=== PATIENT | male | born 1965 | race Caucasian/White ===

== ENCOUNTER → 2016-11-20 | Outpatient (CLI) | payer MEDICARE ==
[~2016-11-20] MED LIST: ANAPROX DS550 MG PO; ANTIBIOTIC O500 U/GM TP; AUGMENTIN 875875 MG PO; BENADRYL ALLERG25 M5 PO; DAYPRO600 M1 PO; DEPAKOTE500 MG PO; ECPIRIN325 MG PO; FLEXERIL10 MG PO; GABAPENTIN800 MG PO; GLIMEPIRIDE2 MG PO; HYDROCODONE BIT1 T11 PO; MEDROL DOSEPAK4 MG PO; METFORMIN500 MG PO; Motrin,Rufen800 MG PO; PEN-VEE K500 MG PO; PERCOCET 325 MG1 TA7 PO; PREDNICOT20 MG PO; PREDNISONE10 MG PO; RISPERDAL4 MG PO; ROBAXIN750 MG PO; ULTRAM50 MG PO; VICODIN 500 MG-1 TAB PO; ZOCOR10 MG PO; ZOFRAN4 MG PO
[2016-11-20 10:38] LABS: ALBUMIN 3.3 gm/dl (3.1-4.5); BUN 8 mg/dl (7-24); CARBON DIOXIDE 30 mmol/L (21-32); CHLORIDE 95 mmol/L (98-107); EST GLOM FILT AFRICAN AMERICAN > 60 ml/min; GLUCOSE 363 mg/dL (65-99); POTASSIUM 3.9 mmol/L (3.5-5.1); SGOT/AST 24 IU/L (3-35); SGPT/ALT 41 U/L (12-78); SODIUM 134 mmol/L (136-145)
[2016-11-20 10:46] LABS: FOLIC ACID 11.13 ng/mL (>5.38)
[2016-11-20 10:47] LABS: ALKALINE PHOSPHATASE 89 U/L (45-117); BILIRUBIN, TOTAL 0.4 mg/dl (0.2-1.0)
== END | disposition home or self-care (01) ==
LOC: LAB 09:22
PROVIDERS: Psychiatry & Neurology Neurology
DX: R41.89 Other symptoms and signs involving cognitive functions and awareness (principal); R20.9 Unspecified disturbances of skin sensation

== ENCOUNTER 2017-02-27 17:08 | Emergency (ER) | payer MEDICARE ==
[~2017-02-27] VITALS: Ht 180.3 cm; Wt 135.6 kg
[2017-02-27] MEDS ORDERED: BISACODYL LAXATI5 MG PO (17:22)
[2017-02-27 17:55] LABS: BASO # 0.1 10*3/uL (0.0-0.1); BASO % 0.6 % (0.0-1.0); EOS # 0.3 10*3/uL (0.0-0.4); EOS % 2.6 % (1.0-4.0); HEMATOCRIT 43.3 % (42.0-52.0); HEMOGLOBIN 14.5 g/dl (14.0-18.0); LYMPH # 2.7 10*3/uL (1.3-4.4); LYMPH % 23.1 % (27.0-41.0); MEAN CELL VOLUME 83.6 fl (80.0-94.0); MEAN CORPUSCULAR HGB CONC 33.5 g/dl (33.0-37.0); MEAN PLATELET VOLUME 9.8 fl (9.6-12.3); MONO # 0.7 10*3/uL (0.1-1.0); MONO % 6.1 % (3.0-9.0); NEUT # 7.8 10*3/uL (2.3-7.9); NEUT % 67.3 % (47.0-73.0); PLATELET COUNT AUTOMATED 308 10*3/uL (130-400); RED BLOOD COUNT 5.18 10*6/uL (4.50-5.90); RED CELL DISTRI WIDTH 13.3 % (0-14.5); WHITE BLOOD COUNT 11.6 10*3/uL (4.8-10.8)
[2017-02-27 18:16] LABS: ALBUMIN 3.3 gm/dl (3.1-4.5); ALKALINE PHOSPHATASE 81 U/L (45-117); BILIRUBIN, TOTAL 0.7 mg/dl (0.2-1.0); BUN 7 mg/dl (7-24); CARBON DIOXIDE 28 mmol/L (21-32); CHLORIDE 99 mmol/L (98-107); EST GLOM FILT AFRICAN AMERICAN > 60 ml/min; GLUCOSE 162 mg/dL (65-99); POTASSIUM 3.5 mmol/L (3.5-5.1); SGOT/AST 21 IU/L (3-35); SGPT/ALT 25 U/L (12-78); SODIUM 135 mmol/L (136-145); TOTAL PROTEIN 7.9 gm/dL (6.4-8.2)
[2017-02-27] MEDS ORDERED: AMOXICILLIN875 MG PO (18:20)
[2017-02-27] MEDS ORDERED: CLARITIN10 MG PO (18:20)
[2017-02-27] MEDS ORDERED: FLONASE ALLERG9.9 ML NAS (18:20)
== END 2017-02-27 18:32 | disposition home or self-care (01) ==
LOC: ED 17:08
PROVIDERS: Physician Assistant
DX: J01.90 Acute sinusitis, unspecified (principal); G89.29 Other chronic pain; R19.7 Diarrhea, unspecified; K21.9 Gastro-esophageal reflux disease without esophagitis; Z90.49 Acquired absence of other specified parts of digestive tract; Z79.899 Other long term (current) drug therapy

== ENCOUNTER → 2017-03-26 | Outpatient (CLI) | payer OTHER ==
[~2017-03-26] MED LIST changes: +AMOXICILLIN875 MG PO; +BISACODYL LAXATI5 MG PO; +CLARITIN10 MG PO; +FLONASE ALLERG9.9 ML NAS
[2017-03-26 12:22] LABS: HEMATOCRIT 45.6 % (42.0-52.0); HEMOGLOBIN 15.2 g/dl (14.0-18.0); MEAN CELL VOLUME 83.2 fl (80.0-94.0); MEAN CORPUSCULAR HGB 27.7 pg (27.0-31.0); MEAN CORPUSCULAR HGB CONC 33.3 g/dl (33.0-37.0); MEAN PLATELET VOLUME 10.2 fl (9.6-12.3); RED BLOOD COUNT 5.48 10*6/uL (4.50-5.90); RED CELL DISTRI WIDTH 13.4 % (0-14.5); WHITE BLOOD COUNT 13.4 10*3/uL (4.8-10.8)
[2017-03-26 12:45] LABS: ALBUMIN 3.3 gm/dl (3.1-4.5); ALKALINE PHOSPHATASE 82 U/L (45-117); BILIRUBIN, TOTAL 0.7 mg/dl (0.2-1.0); BUN 7 mg/dl (7-24); CARBON DIOXIDE 29 mmol/L (21-32); CHLORIDE 99 mmol/L (98-107); CHOLESTEROL 329 mg/dL (<200); EST GLOM FILT AFRICAN AMERICAN > 60 ml/min; GLUCOSE 174 mg/dL (65-99); HDL CHOLESTEROL 38 mg/dl (40-60); LDL CHOLESTEROL 268 mg/dL (9-159); POTASSIUM 4.1 mmol/L (3.5-5.1); SGOT/AST 27 IU/L (3-35); SGPT/ALT 28 U/L (12-78); SODIUM 137 mmol/L (136-145); TOTAL PROTEIN 8.6 gm/dL (6.4-8.2); TRIGLYCERIDES 115 mg/dl (<150); VLDL CHOLESTEROL 23 mg/dL (6-40)
[2017-03-26 12:57] LABS: HEMOGLOBIN A1c 8.3 % (4.8-5.6)
== END | disposition home or self-care (01) ==
LOC: LAB 11:33
PROVIDERS: Family Medicine
DX: Z12.5 Encounter for screening for malignant neoplasm of prostate (principal); E11.9 Type 2 diabetes mellitus without complications; E78.00 Pure hypercholesterolemia, unspecified; M25.561 Pain in right knee; E66.9 Obesity, unspecified; E55.9 Vitamin D deficiency, unspecified

== ENCOUNTER 2017-05-29 04:32 | Emergency (ER) | payer OTHER ==
[~2017-05-29] VITALS: Ht 180.3 cm; Wt 134.3 kg
[2017-05-29 05:31] LABS: BASO # 0.1 10*3/uL (0.0-0.1); BASO % 0.7 % (0.0-1.0); EOS # 0.5 10*3/uL (0.0-0.4); EOS % 4.1 % (1.0-4.0); HEMATOCRIT 45.2 % (42.0-52.0); HEMOGLOBIN 15.4 g/dl (14.0-18.0); LYMPH # 4.8 10*3/uL (1.3-4.4); LYMPH % 37.3 % (27.0-41.0); MEAN CELL VOLUME 82.8 fl (80.0-94.0); MEAN CORPUSCULAR HGB 28.2 pg (27.0-31.0); MEAN CORPUSCULAR HGB CONC 34.1 g/dl (33.0-37.0); MEAN PLATELET VOLUME 10.1 fl (9.6-12.3); MONO # 0.8 10*3/uL (0.1-1.0); MONO % 6.3 % (3.0-9.0); NEUT # 6.6 10*3/uL (2.3-7.9); NEUT % 51.2 % (47.0-73.0); PLATELET COUNT AUTOMATED 320 10*3/uL (130-400); RED BLOOD COUNT 5.46 10*6/uL (4.50-5.90); RED CELL DISTRI WIDTH 13.3 % (0-14.5); WHITE BLOOD COUNT 12.8 10*3/uL (4.8-10.8)
[2017-05-29 05:35] LABS: BILIRUBIN NEGATIVE (NEGATIVE); BLOOD NEGATIVE (NEGATIVE); CLARITY CLEAR (CLEAR); COLOR YELLOW (YELLOW); GLUCOSE 3+ (NEGATIVE); KETONE NEGATIVE (NEGATIVE); LEUKO ESTERASE NEGATIVE (NEGATIVE); NITRITE NEGATIVE (NEGATIVE); SPECIFIC GRAVITY 1.015 (1.005-1.030)
[2017-05-29 05:45] LABS: RBC 0-2 rbc/hpf (0-2)
[2017-05-29 05:47] LABS: ALBUMIN 3.3 gm/dl (3.1-4.5); ALKALINE PHOSPHATASE 83 U/L (45-117); BUN 10 mg/dl (7-24); CHLORIDE 98 mmol/L (98-107); CREATININE 0.89 mg/dL (0.70-1.30); LIPASE 210 U/L (73-393); POTASSIUM 3.9 mmol/L (3.5-5.1); SGOT/AST 20 IU/L (3-35); SGPT/ALT 33 U/L (12-78); SODIUM 135 mmol/L (136-145); TOTAL PROTEIN 8.4 gm/dL (6.4-8.2)
[2017-05-29] MEDS ORDERED: IMODIUM A-D2 M2 PO (09:18)
[2017-05-29] MEDS ORDERED: PRILOSEC20 M1 PO (10:06)
== END 2017-05-29 09:52 | disposition home or self-care (01) ==
LOC: ED 04:32
PROVIDERS: Emergency Medicine
DX: K52.9 Noninfective gastroenteritis and colitis, unspecified (principal); E11.9 Type 2 diabetes mellitus without complications; K21.9 Gastro-esophageal reflux disease without esophagitis; G89.29 Other chronic pain; M54.5 Low back pain; Z90.49 Acquired absence of other specified parts of digestive tract; Z79.899 Other long term (current) drug therapy

== ENCOUNTER → 2017-09-28 | Outpatient (CLI) | payer OTHER ==
[~2017-09-28] MED LIST changes: +IMODIUM A-D2 M2 PO; +PRILOSEC20 M1 PO
== END | disposition home or self-care (01) ==
LOC: RAD 09:51
DX: G89.29 Other chronic pain (principal); M54.42 Lumbago with sciatica, left side

== ENCOUNTER 2017-10-08 11:04 | Emergency (ER) | payer MEDICARE ==
[~2017-10-08] VITALS: Ht 180.3 cm; Wt 136.1 kg
[2017-10-08] MEDS ORDERED: EC NAPROSYN,NA500 MG PO (11:16)
[2017-10-08] MEDS ORDERED: CYCLOBENZAPRINE10 MG PO (11:17)
[2017-10-08] MEDS ORDERED: FLONASE ALLERG9.9 ML NAS (12:12)
[2017-10-08] MEDS ORDERED: ZYRTEC10 MG PO (12:12)
[2017-10-08] MEDS ORDERED: ROBITUSSIN DM 105 ML PO (12:13)
[2017-10-08] MEDS ORDERED: PREDNISONE20 M1 PO (12:13)
== END 2017-10-08 12:15 | disposition home or self-care (01) ==
LOC: ED 11:04
DX: B34.9 Viral infection, unspecified (principal); Z90.49 Acquired absence of other specified parts of digestive tract; Z79.899 Other long term (current) drug therapy

== ENCOUNTER 2019-02-20 18:09 | Emergency (ER) | payer OTHER, MEDICAID ==
[~2019-02-20] VITALS: Ht 180.3 cm; Wt 127.5 kg
[~2019-02-20 18:09] MED LIST changes: +CYCLOBENZAPRINE10 MG PO; +DICYCLOMINE HCL10 MG PO; +EC NAPROSYN,NA500 MG PO; +METFORMIN HYDR500 MG PO; -METFORMIN500 MG PO; +MIRALAX POWDER17 G1 PO; +PREDNISONE20 M1 PO; +ROBITUSSIN DM 105 ML PO; +ZYRTEC10 MG PO
[2019-02-28] MEDS ORDERED: IBUPROFEN600 MG PO (11:11)
[2019-02-28] MEDS ORDERED: ROBAXIN500 M1 PO (11:11)
[2019-03-02] MEDS ORDERED: BYDUREON P2 MG/0.65 SQ (14:46)
[2019-03-02] MEDS ORDERED: NORCO 7.5-3251 EACH PO (14:48)
[2019-03-02] MEDS ORDERED: PRILOSEC20 M1 PO (14:49)
[2019-03-02] MEDS ORDERED: NEURONTIN600 MG PO (14:50)
[2019-03-03] MEDS ORDERED: PREDNISONE50 MG PO (14:16)
[2019-03-03] MEDS ORDERED: VITAMIN D32000 UNI1 PO (14:16)
[2019-03-03] MEDS ORDERED: METFORMIN HYDR500 MG PO (14:16)
[2019-03-03] MEDS ORDERED: ATORVASTATIN CA80 M1 PO (14:16)
[2019-03-03] MEDS ORDERED: ASPIR LOW81 MG PO (14:16)
== END 2019-02-20 20:03 | disposition home or self-care (01) ==
LOC: ED 18:09
DX: R51 Headache (principal); K21.9 Gastro-esophageal reflux disease without esophagitis

== ENCOUNTER → 2019-02-24 | Outpatient (CLI) | payer OTHER, MEDICAID ==
[~2019-02-24] MED LIST changes: +ASPIR LOW81 MG PO; +ATORVASTATIN CA80 M1 PO; +BYDUREON P2 MG/0.65 SQ; +IBUPROFEN600 MG PO; +NEURONTIN600 MG PO; +NORCO 7.5-3251 EACH PO; +PREDNISONE50 MG PO; +ROBAXIN500 M1 PO; +VITAMIN D32000 UNI1 PO
== END | disposition home or self-care (01) ==
LOC: LAB 15:07
DX: K58.0 Irritable bowel syndrome with diarrhea (principal)

== ENCOUNTER 2019-03-26 15:36 | Emergency (ER) | payer OTHER, MEDICAID ==
[~2019-03-26] VITALS: Ht 180.3 cm; Wt 124.7 kg
[2019-03-26] MEDS ORDERED: MEDROL DOSEPAK4 MG PO (19:21)
== END 2019-03-26 19:52 | disposition home or self-care (01) ==
LOC: ED 15:36
DX: M54.12 Radiculopathy, cervical region (principal); R29.810 Facial weakness; M25.511 Pain in right shoulder; M25.512 Pain in left shoulder; M79.602 Pain in left arm; M79.601 Pain in right arm

== ENCOUNTER → 2019-07-13 | Outpatient (CLI) | payer OTHER | END | disposition home or self-care (01) | LOC: RAD 14:05 | DX: M25.522 Pain in left elbow (principal); M25.532 Pain in left wrist; M79.632 Pain in left forearm ==

== ENCOUNTER 2019-08-31 07:55 | Emergency (ER) | payer OTHER ==
[~2019-08-31] VITALS: Ht 180.3 cm; Wt 122.5 kg
[2019-08-31] MEDS ORDERED: TAMIFLU 75MG CA75 MG PO (09:30)
== END 2019-08-31 09:39 | disposition home or self-care (01) ==
LOC: ED 07:55
DX: R05 Cough (principal); R09.81 Nasal congestion; R11.2 Nausea with vomiting, unspecified; E11.40 Type 2 diabetes mellitus with diabetic neuropathy, unspecified; K21.9 Gastro-esophageal reflux disease without esophagitis; E66.01 Morbid (severe) obesity due to excess calories; E78.00 Pure hypercholesterolemia, unspecified; Z79.899 Other long term (current) drug therapy; Z79.82 Long term (current) use of aspirin; Z90.49 Acquired absence of other specified parts of digestive tract

== ENCOUNTER 2022-02-17 21:19 | Emergency (ER) | payer MEDICARE ==
[~2022-02-17] VITALS: Ht 180.3 cm; Wt 122.5 kg
[~2022-02-17 21:19] MED LIST changes: +TAMIFLU 75MG CA75 MG PO
[2022-02-18] MEDS ORDERED: ZITHROMAX250 MG PO (02:27)
== END 2022-02-18 03:12 | disposition home or self-care (01) ==
LOC: ED 21:19
DX: J40 Bronchitis, not specified as acute or chronic (principal); Z20.822 Contact with and (suspected) exposure to COVID-19; E11.9 Type 2 diabetes mellitus without complications; K21.9 Gastro-esophageal reflux disease without esophagitis; Z90.49 Acquired absence of other specified parts of digestive tract

== ENCOUNTER 2023-01-23 17:11 | Emergency (ER) | payer MEDICARE ==
[~2023-01-23 17:11] MED LIST changes: +ZITHROMAX250 MG PO
[2023-01-23 17:53] LABS: BASO # 0.1 10*3/uL (0.0-0.1); BASO % 0.7 % (0.0-1.0); EOS # 0.4 10*3/uL (0.0-0.4); HEMATOCRIT 41.3 % (42.0-52.0); LYMPH # 4.2 10*3/uL (1.3-4.4); LYMPH % 39.6 % (27.0-41.0); MEAN CELL VOLUME 83.8 fl (80.0-94.0); MEAN CORPUSCULAR HGB CONC 34.6 g/dl (33.0-37.0); MEAN PLATELET VOLUME 9.8 fl (9.6-12.3); MONO # 0.7 10*3/uL (0.1-1.0); MONO % 6.7 % (3.0-9.0); NEUT # 5.2 10*3/uL (2.3-7.9); NEUT % 48.8 % (47.0-73.0); PLATELET COUNT AUTOMATED 230 10*3/uL (130-400); RED BLOOD COUNT 4.93 10*6/uL (4.50-5.90); RED CELL DISTRI WIDTH 12.9 % (0-14.5); WHITE BLOOD COUNT 10.6 10*3/uL (4.8-10.8)
[2023-01-23 18:08] LABS: ACT PARTIAL THROMBO TIME 26.6 SECONDS (20.0-32.1)
[2023-01-23 18:23] LABS: ALKALINE PHOSPHATASE 64 U/L (46-116); BUN 12 mg/dl (9-23); CHLORIDE 100 mmol/L (98-107); POTASSIUM 3.7 mmol/L (3.4-5.1); SGPT/ALT 27 U/L (10-49); TOTAL PROTEIN 7.3 gm/dL (6.0-8.0)
[2023-01-23] MEDS ORDERED: GLUMETZA1000 MG PO (18:59)
[2023-01-23] MEDS ORDERED: CELECOXIB100 M1 PO (19:00)
[2023-01-23] MEDS ORDERED: LISINOPRIL2.5 MG PO (19:00)
[2023-01-23] MEDS ORDERED: GABAPENTIN100 M2 PO (19:00)
== END 2023-01-23 22:30 | disposition home or self-care (01) ==
LOC: ED 17:11
PROVIDERS: Internal Medicine
DX: M94.0 Chondrocostal junction syndrome [Tietze] (principal); Z90.49 Acquired absence of other specified parts of digestive tract; Z98.890 Other specified postprocedural states

== ENCOUNTER → 2023-06-04 | Outpatient (CLI) | payer MEDICARE ==
[~2023-06-04] MED LIST changes: +CELECOXIB100 M1 PO; +GABAPENTIN100 M2 PO; +GLUMETZA1000 MG PO; +LISINOPRIL2.5 MG PO
[2023-06-04 10:41] LABS: HEMATOCRIT 45.2 % (42.0-52.0)
[2023-06-04 10:51] LABS: URINE CREATININE RANDOM 62.15 mg/dL
[2023-06-04 11:06] LABS: BUN 10 mg/dl (9-23); CHLORIDE 98 mmol/L (98-107); POTASSIUM 4.4 mmol/L (3.4-5.1)
[2023-06-04 11:10] LABS: VITAMIN D, 25-HYDROXY 26.5 ng/mL (30-100)
== END | disposition home or self-care (01) ==
LOC: LAB 10:08
PROVIDERS: ATTEND Internal Medicine
DX: I12.9 Hypertensive chronic kidney disease with stage 1 through stage 4 chronic kidney disease, or unspecified chronic kidney disease (principal); N18.9 Chronic kidney disease, unspecified; E55.9 Vitamin D deficiency, unspecified; N25.81 Secondary hyperparathyroidism of renal origin; D63.1 Anemia in chronic kidney disease; D64.9 Anemia, unspecified

== ENCOUNTER 2023-07-03 14:05 | Emergency (ER) | payer MEDICARE ==
[~2023-07-03] VITALS: Ht 180.3 cm; Wt 122.5 kg
[2023-07-03] MEDS ORDERED: NAPROXEN250 MG PO ×2 (14:51→14:52)
== END 2023-07-03 15:02 | disposition home or self-care (01) ==
LOC: ED 14:05
DX: M54.2 Cervicalgia (principal); M79.2 Neuralgia and neuritis, unspecified; M25.512 Pain in left shoulder; K21.9 Gastro-esophageal reflux disease without esophagitis; E11.65 Type 2 diabetes mellitus with hyperglycemia; E78.00 Pure hypercholesterolemia, unspecified; Z90.49 Acquired absence of other specified parts of digestive tract; Z98.890 Other specified postprocedural states

== ENCOUNTER → 2024-04-02 | Outpatient (CLI) | payer MEDICARE ==
[~2024-04-02] MED LIST changes: +NAPROXEN250 MG PO
== END ==
LOC: CT 10:51
PROVIDERS: ATTEND Nurse Practitioner Primary Care
DX: K57.92 Diverticulitis of intestine, part unspecified, without perforation or abscess without bleeding (principal); Z90.49 Acquired absence of other specified parts of digestive tract

== ENCOUNTER → 2025-02-15 | Outpatient (CLI) | payer MEDICARE | END | disposition home or self-care (01) | LOC: LAB 14:27 | PROVIDERS: ATTEND Nurse Practitioner Family | DX: S69.90XA Unspecified injury of unspecified wrist, hand and finger(s), initial encounter (principal); E11.9 Type 2 diabetes mellitus without complications; X58.XXXA Exposure to other specified factors, initial encounter; Y93.89 Activity, other specified; Y92.89 Other specified places as the place of occurrence of the external cause; Y99.8 Other external cause status ==

== ENCOUNTER → 2025-04-01 | Outpatient (CLI) | payer MEDICARE, MEDICAID | END | disposition home or self-care (01) | LOC: MRI 10:38 | PROVIDERS: ATTEND Nurse Practitioner Primary Care | DX: S09.90XA Unspecified injury of head, initial encounter (principal); G43.909 Migraine, unspecified, not intractable, without status migrainosus; X58.XXXA Exposure to other specified factors, initial encounter; Y93.89 Activity, other specified; Y92.89 Other specified places as the place of occurrence of the external cause; Y99.8 Other external cause status ==

== ENCOUNTER 2025-05-01 11:25 | Emergency (ER) | payer MEDICARE ==
[2025-05-01] MEDS ORDERED: ATORVASTATIN CA40 M1 PO (13:19)
[2025-05-01] MEDS ORDERED: OZEMPIC0.25 MG/03 SQ (13:19)
[2025-05-01] MEDS ORDERED: BENADRYL ALLERG25 M5 PO (13:30)
[2025-05-01] MEDS ORDERED: PREDNISONE10 M1 PO (13:30)
[2025-05-01] MEDS ORDERED: diphenhydrAMINE hydrochloride 25 MG CAP PO ONE (13:35)
== END 2025-05-01 13:55 | disposition home or self-care (01) ==
LOC: ED 11:25
DX: L23.7 Allergic contact dermatitis due to plants, except food (principal); E11.9 Type 2 diabetes mellitus without complications; K21.9 Gastro-esophageal reflux disease without esophagitis; E78.00 Pure hypercholesterolemia, unspecified; E66.01 Morbid (severe) obesity due to excess calories; Z79.899 Other long term (current) drug therapy; Z68.30 Body mass index [BMI] 30.0-30.9, adult; Z90.49 Acquired absence of other specified parts of digestive tract